=== PATIENT | female | born 1980 | race Caucasian/White ===

== ENCOUNTER 2020-05-22 18:29 | Inpatient (IN) | payer OTHER ==
[~2020-05-22] VITALS: Ht 157.5 cm; Wt 74.6 kg
[2020-05-22] MEDS ORDERED: ONDANSETRON HCL 4 MG/2 ML VIAL IVP PRN (19:15)
[2020-05-22] MEDS ORDERED: 0.9% SODIUM CHLORIDE 10 ML SYRINGE IVP PRN ×2 (19:15→22:15)
[2020-05-22] MEDS ORDERED: ACETAMINOPHEN 325 MG TABLET PO PRN (19:15)
[2020-05-22 19:23] LABS: BASOPHILS % (AUTO) 0.6 % (0.0-2.0); EOSINOPHILS % (AUTO) 1.3 % (1.0-6.0); HEMATOCRIT 34.2 % (36-46); HEMOGLOBIN 11.2 g/dL (12.0-16.0); LYMPHOCYTES # (AUTO) 1.7 K/uL (1.0-4.8); LYMPHOCYTES % (AUTO) 16.7 % (22.0-44.0); MEAN CORPUSCULAR HEMOGLOBIN 29.4 pg (26.0-34.0); MEAN CORPUSCULAR HGB CONC 32.7 G/dL (31.0-37.0); MEAN CORPUSCULAR VOLUME 90 fL (80-100); MONOCYTES # (AUTO) 0.9 K/uL (0.1-1.0); MONOCYTES % (AUTO) 8.9 % (2.0-9.0); NEUTROPHILS # (AUTO) 7.2 K/uL (1.8-7.7); NEUTROPHILS % (AUTO) 72.5 % (40.0-70.0); PLATELET COUNT (AUTO) 354 K/uL (150-450); RED CELL DISTRIBUTION WIDTH 14.1 % (11.5-14.5)
[2020-05-22 19:30] LABS: CARBON DIOXIDE 32 mmol/L (22-29); CHLORIDE 102 mmol/L (98-107); POTASSIUM 4.8 mmol/L (3.5-5.1); SODIUM SERUM 140 mmol/L (136-145)
[2020-05-22 19:31] LABS: ANION GAP 6 mmol/L (8-16); CALCIUM, TOTAL 9.5 mg/dL (8.8-10.5); CREATININE 0.86 mg/dL (0.60-1.30); GLOMERULAR FILTR. RATE CALC > 60 mL/min (>60); GLUCOSE,RANDOM 139 mg/dL (70-110); UREA NITROGEN, BLOOD 27 mg/dL (7-18)
[2020-05-22 21:50] VITALS: BP 130/89
[2020-05-22] MEDS ORDERED: KETOROLAC TROMETHAMINE 15 MG/ML VIAL IVP PRN (22:15)
[2020-05-22] MEDS ORDERED: ASPI-1111 PO (22:22)
[2020-05-22] MEDS ORDERED: CYCL10 PO (22:22)
[2020-05-22] MEDS ORDERED: IBUP-2124 PO (22:25)
[2020-05-22] MEDS ORDERED: LIDO700A15 TP (22:25)
[2020-05-22] MEDS ORDERED: NALO4SPR NASAL (22:25)
[2020-05-22] MEDS ORDERED: SENN8.6T20 PO (22:25)
[2020-05-22] MEDS ORDERED: tylenol PO (22:26)
[2020-05-22] MEDS ORDERED: LISI2.5T91 PO (22:26)
[2020-05-22 23:59] VITALS: BP 138/81
[2020-05-23] MEDS: HEPARIN SODIUM,PORCINE 5,000 UNITS/ML VIAL SQ SCH ×5 (00:17→23:24)
[2020-05-23 04:26] VITALS: BP 141/84
[2020-05-23] MEDS ORDERED: SODIUM CHLORIDE 0.9% 2,250 ML IV ONE (06:30)
[2020-05-23] MEDS ORDERED: VANCOMYCIN HCL 1.5 GM in DEXTROSE 5%-WATER 250 ML IV SCH (06:30)
[2020-05-23] MEDS ORDERED: VANCOMYCIN HCL 1.5 GM in DEXTROSE 5%-WATER 250 ML IV ONE (08:00)
[2020-05-23] MEDS: LEVOFLOXACIN 500 MG/D5% WATER 100 ML IV SCH (08:47)
[2020-05-23] MEDS: ASPIRIN 81 MG EC TABLET PO SCH (08:48)
[2020-05-23] MEDS: FAMOTIDINE 10 MG/ML 2 ML VIAL IVP SCH ×2 (08:48→20:36)
[2020-05-23] MEDS: LIDOCAINE 5% TRANSDERMAL PATCH TD SCH (08:48)
[2020-05-23] MEDS: SENNA 187 MG TABLET PO SCH (08:48)
[2020-05-23] MEDS: LISINOPRIL 5 MG TABLET PO SCH (08:48)
[2020-05-23 12:42] LABS: ALANINE AMINOTRANSFERASE 107 U/L (12-78); ALBUMIN 2.8 g/dL (3.4-5.0); ALKALINE PHOSPHATASE 74 U/L (46-116); ASPARTATE AMINOTRANSFERASE 64 U/L (15-37); BILIRUBIN,TOTAL 0.7 mg/dL (0.1-1.0); CALCIUM, TOTAL 8.8 mg/dL (8.8-10.5); CARBON DIOXIDE 29 mmol/L (22-29); CREATININE 0.66 mg/dL (0.60-1.30); GLOMERULAR FILTR. RATE CALC > 60 mL/min (>60); GLUCOSE,RANDOM 98 mg/dL (70-110); LIPASE 104 U/L (73-393); TOTAL PROTEIN, SERUM 7.5 g/dL (6.4-8.2); UREA NITROGEN, BLOOD 23 mg/dL (7-18)
[2020-05-23 12:46] LABS: ANION GAP 6 mmol/L (8-16); CHLORIDE 101 mmol/L (98-107); POTASSIUM 4.5 mmol/L (3.5-5.1); SODIUM SERUM 136 mmol/L (136-145)
[2020-05-23] MEDS ORDERED: MEBROFENIN TC99M/MCL ISOTOPE 1 EA INJ INJ ONE (14:40)
[2020-05-23] MEDS: VANCOMYCIN HCL 1 GM/D5% WATER 200 ML IV SCH ×2 (17:46→23:24)
[2020-05-23 20:05] VITALS: BP 125/76
[2020-05-23] MEDS: -LIDODERM PATCH NOTE- MISC SCH (20:37)
[2020-05-23 23:08] VITALS: BP 136/81
[2020-05-24 03:36] VITALS: BP 139/79
[2020-05-24] MEDS: LEVOFLOXACIN 500 MG/D5% WATER 100 ML IV SCH (06:08)
[2020-05-24 07:04] LABS: ANION GAP 5 mmol/L (8-16); CALCIUM, TOTAL 8.4 mg/dL (8.8-10.5); CARBON DIOXIDE 28 mmol/L (22-29); CHLORIDE 101 mmol/L (98-107); CREATININE 0.76 mg/dL (0.60-1.30); GLOMERULAR FILTR. RATE CALC > 60 mL/min (>60); GLUCOSE,RANDOM 99 mg/dL (70-110); POTASSIUM 4.3 mmol/L (3.5-5.1); SODIUM SERUM 134 mmol/L (136-145); UREA NITROGEN, BLOOD 19 mg/dL (7-18); VANCOMYCIN,RANDOM 17.4 mcg/mL (25.0-50.0)
[2020-05-24 08:09] VITALS: BP 126/82
[2020-05-24] MEDS: VANCOMYCIN HCL 1 GM/D5% WATER 200 ML IV SCH ×2 (08:42→17:29)
[2020-05-24] MEDS: FAMOTIDINE 10 MG/ML 2 ML VIAL IVP SCH ×2 (08:42→20:55)
[2020-05-24] MEDS: ASPIRIN 81 MG EC TABLET PO SCH (08:43)
[2020-05-24] MEDS: SENNA 187 MG TABLET PO SCH (08:43)
[2020-05-24] MEDS: LISINOPRIL 5 MG TABLET PO SCH (08:44)
[2020-05-24] MEDS: LIDOCAINE 5% TRANSDERMAL PATCH TD SCH (09:00)
[2020-05-24] MEDS ORDERED: BUPIVACAINE 0.25%/EPI 1:200,000/PF 10 ML VIAL ONE (13:51)
[2020-05-24] MEDS ORDERED: RINGERS SOLUTION,LACTATED 1,000 ML IV ONE ×3 (14:20→15:47)
[2020-05-24] MEDS ORDERED: SODIUM CHLORIDE 0.9% 1,000 ML ONE (15:16)
[2020-05-24] MEDS ORDERED: HYDROmorphone 2 MG/ML SYRINGE IVP PRN (15:45)
[2020-05-24] MEDS ORDERED: MEPERIDINE-PF 25 MG/ML VIAL IVP PRN (15:45)
[2020-05-24] MEDS ORDERED: FentaNYL CITRATE-PF 100 MCG/2 ML VIAL IVP PRN (15:45)
[2020-05-24] MEDS ORDERED: SUGAMMADEX SODIUM 200 MG/2 ML VIAL IVP ONE (15:47)
[2020-05-24] MEDS: ONDANSETRON HCL 4 MG/2 ML VIAL IVP PRN (18:14)
[2020-05-24] MEDS: ACETAMINOPHEN 325 MG TABLET PO PRN (18:16)
[2020-05-24 19:55] VITALS: BP 161/94
[2020-05-24] MEDS: OXYGEN THERAPY IH SCH (20:00)
[2020-05-24] MEDS: -LIDODERM PATCH NOTE- MISC SCH (21:00)
[2020-05-24 23:01] VITALS: BP 155/98
[2020-05-25] MEDS: VANCOMYCIN HCL 1 GM/D5% WATER 200 ML IV SCH ×4 (00:41→23:20)
[2020-05-25] MEDS: ACETAMINOPHEN 325 MG TABLET PO PRN ×2 (00:45→05:34)
[2020-05-25 05:05] VITALS: BP 163/95
[2020-05-25] MEDS: ONDANSETRON HCL 4 MG/2 ML VIAL IVP PRN (05:34)
[2020-05-25] MEDS ORDERED: MORPHINE SULFATE 4 MG/ML SYRINGE IVP ONE (05:41)
[2020-05-25] MEDS ORDERED: DEXAMETHASONE SOD PHOS 4 MG/ML VIAL IVP ONE (05:41)
[2020-05-25] MEDS ORDERED: FentaNYL CITRATE-PF 100 MCG/2 ML VIAL IVP ONE (05:41)
[2020-05-25] MEDS ORDERED: SUCCINYLCHOLINE CHLORIDE 20 MG/ML 10 ML VIAL IVP ONE (05:41)
[2020-05-25] MEDS ORDERED: ROCURONIUM BROMIDE 10 MG/ML 5 ML VIAL IVP ONE (05:41)
[2020-05-25] MEDS ORDERED: PROPOFOL 1% 20 ML VIAL IVP ONE (05:41)
[2020-05-25] MEDS ORDERED: LIDOCAINE/PF 2% 5 ML VIAL IM ONE (05:41)
[2020-05-25] MEDS ORDERED: MIDAZOLAM HCL 2 MG/2 ML VIAL IVP ONE (05:41)
[2020-05-25] MEDS ORDERED: ONDANSETRON HCL 4 MG/2 ML VIAL IVP ONE (05:41)
[2020-05-25 06:27] LABS: BASOPHILS % (AUTO) 0.2 % (0.0-2.0); EOSINOPHILS % (AUTO) 0.3 % (1.0-6.0); HEMATOCRIT 28.9 % (36-46); HEMOGLOBIN 9.8 g/dL (12.0-16.0); LYMPHOCYTES # (AUTO) 1.9 K/uL (1.0-4.8); LYMPHOCYTES % (AUTO) 16.9 % (22.0-44.0); MEAN CORPUSCULAR HEMOGLOBIN 30.4 pg (26.0-34.0); MEAN CORPUSCULAR HGB CONC 33.9 G/dL (31.0-37.0); MEAN CORPUSCULAR VOLUME 90 fL (80-100); MONOCYTES # (AUTO) 0.8 K/uL (0.1-1.0); MONOCYTES % (AUTO) 7.1 % (2.0-9.0); NEUTROPHILS # (AUTO) 8.5 K/uL (1.8-7.7); NEUTROPHILS % (AUTO) 75.5 % (40.0-70.0); PLATELET COUNT (AUTO) 407 K/uL (150-450); RED BLOOD CELL COUNT(AUTO) 3.23 MIL/uL (4.00-5.20); RED CELL DISTRIBUTION WIDTH 14.5 % (11.5-14.5)
[2020-05-25] MEDS: LEVOFLOXACIN 500 MG/D5% WATER 100 ML IV SCH (06:34)
[2020-05-25 06:48] LABS: ANION GAP 3 mmol/L (8-16); CALCIUM, TOTAL 8.4 mg/dL (8.8-10.5); CARBON DIOXIDE 29 mmol/L (22-29); CHLORIDE 102 mmol/L (98-107); CREATININE 0.68 mg/dL (0.60-1.30); GLOMERULAR FILTR. RATE CALC > 60 mL/min (>60); GLUCOSE,RANDOM 92 mg/dL (70-110); POTASSIUM 3.9 mmol/L (3.5-5.1); SODIUM SERUM 134 mmol/L (136-145); UREA NITROGEN, BLOOD 14 mg/dL (7-18)
[2020-05-25] MEDS: OXYGEN THERAPY IH SCH ×2 (08:00→20:30)
[2020-05-25 08:51] VITALS: BP 143/96
[2020-05-25] MEDS: FAMOTIDINE 10 MG/ML 2 ML VIAL IVP SCH ×2 (09:14→20:28)
[2020-05-25] MEDS: ASPIRIN 81 MG EC TABLET PO SCH (09:15)
[2020-05-25] MEDS: LISINOPRIL 5 MG TABLET PO SCH (09:15)
[2020-05-25] MEDS: LIDOCAINE 5% TRANSDERMAL PATCH TD SCH (09:17)
[2020-05-25] MEDS: SENNA 187 MG TABLET PO SCH (09:22)
[2020-05-25 15:52] VITALS: BP 137/81
[2020-05-25 20:00] VITALS: BP 145/84
[2020-05-25] MEDS: -LIDODERM PATCH NOTE- MISC SCH (20:35)
[2020-05-26 06:03] LABS: BASOPHILS % (AUTO) 0.5 % (0.0-2.0); EOSINOPHILS % (AUTO) 1.2 % (1.0-6.0); HEMATOCRIT 30.4 % (36-46); HEMOGLOBIN 10.5 g/dL (12.0-16.0); LYMPHOCYTES # (AUTO) 2.2 K/uL (1.0-4.8); LYMPHOCYTES % (AUTO) 22.7 % (22.0-44.0); MEAN CORPUSCULAR HEMOGLOBIN 31.3 pg (26.0-34.0); MEAN CORPUSCULAR HGB CONC 34.6 G/dL (31.0-37.0); MEAN CORPUSCULAR VOLUME 91 fL (80-100); MONOCYTES # (AUTO) 0.7 K/uL (0.1-1.0); MONOCYTES % (AUTO) 7.5 % (2.0-9.0); NEUTROPHILS # (AUTO) 6.7 K/uL (1.8-7.7); NEUTROPHILS % (AUTO) 68.1 % (40.0-70.0); PLATELET COUNT (AUTO) 465 K/uL (150-450); RED BLOOD CELL COUNT(AUTO) 3.36 MIL/uL (4.00-5.20); RED CELL DISTRIBUTION WIDTH 15.1 % (11.5-14.5)
[2020-05-26 06:35] LABS: ANION GAP 5 mmol/L (8-16); CALCIUM, TOTAL 8.7 mg/dL (8.8-10.5); CARBON DIOXIDE 29 mmol/L (22-29); CHLORIDE 104 mmol/L (98-107); GLOMERULAR FILTR. RATE CALC > 60 mL/min (>60); GLUCOSE,RANDOM 100 mg/dL (70-110); POTASSIUM 4.3 mmol/L (3.5-5.1); SODIUM SERUM 138 mmol/L (136-145); UREA NITROGEN, BLOOD 14 mg/dL (7-18)
[2020-05-26] MEDS: LEVOFLOXACIN 500 MG/D5% WATER 100 ML IV SCH (06:36)
[2020-05-26 06:44] VITALS: BP 135/88
[2020-05-26 08:16] VITALS: BP 128/82
[2020-05-26] MEDS: LIDOCAINE 5% TRANSDERMAL PATCH TD SCH (09:17)
[2020-05-26] MEDS: FAMOTIDINE 10 MG/ML 2 ML VIAL IVP SCH ×2 (09:18→20:45)
[2020-05-26] MEDS: VANCOMYCIN HCL 1 GM/D5% WATER 200 ML IV SCH ×2 (09:18→16:28)
[2020-05-26] MEDS: LISINOPRIL 5 MG TABLET PO SCH (09:18)
[2020-05-26] MEDS: SENNA 187 MG TABLET PO SCH (09:18)
[2020-05-26] MEDS: ASPIRIN 81 MG EC TABLET PO SCH (09:18)
[2020-05-26 15:20] VITALS: BP 120/80
[2020-05-26 20:53] VITALS: BP 103/60
[2020-05-26] MEDS: OXYGEN THERAPY IH SCH (21:06)
[2020-05-26] MEDS: -LIDODERM PATCH NOTE- MISC SCH (21:07)
[2020-05-27] MEDS: VANCOMYCIN HCL 1 GM/D5% WATER 200 ML IV SCH ×3 (00:38→15:45)
[2020-05-27] MEDS: OXYGEN THERAPY IH SCH ×3 (00:39→20:00)
[2020-05-27 05:12] VITALS: BP 127/88
[2020-05-27] MEDS: LEVOFLOXACIN 500 MG/D5% WATER 100 ML IV SCH (06:59)
[2020-05-27 07:03] LABS: ANION GAP 4 mmol/L (8-16); CALCIUM, TOTAL 8.8 mg/dL (8.8-10.5); CARBON DIOXIDE 30 mmol/L (22-29); CHLORIDE 99 mmol/L (98-107); CREATININE 0.75 mg/dL (0.60-1.30); GLOMERULAR FILTR. RATE CALC > 60 mL/min (>60); GLUCOSE,RANDOM 97 mg/dL (70-110); POTASSIUM 4.1 mmol/L (3.5-5.1); SODIUM SERUM 133 mmol/L (136-145); UREA NITROGEN, BLOOD 19 mg/dL (7-18)
[2020-05-27 08:02] VITALS: BP 126/82
[2020-05-27] MEDS: SENNA 187 MG TABLET PO SCH (08:04)
[2020-05-27] MEDS: FAMOTIDINE 10 MG/ML 2 ML VIAL IVP SCH ×2 (08:04→22:53)
[2020-05-27] MEDS: LISINOPRIL 5 MG TABLET PO SCH (08:04)
[2020-05-27] MEDS: ASPIRIN 81 MG EC TABLET PO SCH (08:04)
[2020-05-27] MEDS: LIDOCAINE 5% TRANSDERMAL PATCH TD SCH (08:05)
[2020-05-27 15:49] VITALS: BP 114/73
[2020-05-27 20:00] VITALS: BP 113/71
[2020-05-27] MEDS: -LIDODERM PATCH NOTE- MISC SCH (21:00)
[2020-05-28] MEDS: VANCOMYCIN HCL 1 GM/D5% WATER 200 ML IV SCH ×5 (00:51→22:46)
[2020-05-28 05:43] VITALS: BP 127/77
[2020-05-28] MEDS: LEVOFLOXACIN 500 MG/D5% WATER 100 ML IV SCH (06:13)
[2020-05-28 07:27] LABS: ANION GAP 5 mmol/L (8-16); CALCIUM, TOTAL 8.7 mg/dL (8.8-10.5); CARBON DIOXIDE 29 mmol/L (22-29); CHLORIDE 99 mmol/L (98-107); GLOMERULAR FILTR. RATE CALC > 60 mL/min (>60); GLUCOSE,RANDOM 102 mg/dL (70-110); POTASSIUM 4.1 mmol/L (3.5-5.1); SODIUM SERUM 133 mmol/L (136-145); UREA NITROGEN, BLOOD 19 mg/dL (7-18)
[2020-05-28] MEDS: OXYGEN THERAPY IH SCH ×2 (08:00→20:00)
[2020-05-28 08:08] VITALS: BP 110/65
[2020-05-28] MEDS: FAMOTIDINE 10 MG/ML 2 ML VIAL IVP SCH ×2 (08:24→22:39)
[2020-05-28] MEDS: SENNA 187 MG TABLET PO SCH (08:24)
[2020-05-28] MEDS: ASPIRIN 81 MG EC TABLET PO SCH (08:24)
[2020-05-28] MEDS: LISINOPRIL 5 MG TABLET PO SCH (08:24)
[2020-05-28] MEDS: LIDOCAINE 5% TRANSDERMAL PATCH TD SCH (08:24)
[2020-05-28 16:02] VITALS: BP 117/71
[2020-05-28 20:00] VITALS: BP 136/79
[2020-05-28] MEDS: -LIDODERM PATCH NOTE- MISC SCH (21:00)
[2020-05-29 04:39] VITALS: BP 115/81
[2020-05-29] MEDS: LEVOFLOXACIN 500 MG/D5% WATER 100 ML IV SCH (06:03)
[2020-05-29 07:16] LABS: ANION GAP 3 mmol/L (8-16); CALCIUM, TOTAL 8.6 mg/dL (8.8-10.5); CARBON DIOXIDE 30 mmol/L (22-29); CHLORIDE 100 mmol/L (98-107); CREATININE 0.82 mg/dL (0.60-1.30); GLOMERULAR FILTR. RATE CALC > 60 mL/min (>60); GLUCOSE,RANDOM 103 mg/dL (70-110); POTASSIUM 4.3 mmol/L (3.5-5.1); SODIUM SERUM 133 mmol/L (136-145); UREA NITROGEN, BLOOD 19 mg/dL (7-18)
[2020-05-29] MEDS: OXYGEN THERAPY IH SCH ×2 (08:00→20:00)
[2020-05-29 08:17] VITALS: BP 121/77
[2020-05-29] MEDS: VANCOMYCIN HCL 1 GM/D5% WATER 200 ML IV SCH ×3 (08:30→23:37)
[2020-05-29] MEDS: LIDOCAINE 5% TRANSDERMAL PATCH TD SCH (08:31)
[2020-05-29] MEDS: SENNA 187 MG TABLET PO SCH (08:31)
[2020-05-29] MEDS: LISINOPRIL 5 MG TABLET PO SCH (08:31)
[2020-05-29] MEDS: ASPIRIN 81 MG EC TABLET PO SCH (08:31)
[2020-05-29] MEDS: FAMOTIDINE 10 MG/ML 2 ML VIAL IVP SCH ×2 (08:31→20:11)
[2020-05-29] MEDS ORDERED: LEVO500P13 IV (13:08)
[2020-05-29 16:16] VITALS: BP 114/69
[2020-05-29] MEDS: -LIDODERM PATCH NOTE- MISC SCH (21:00)
[2020-05-30 05:26] LABS: ANION GAP 3 mmol/L (8-16); CALCIUM, TOTAL 8.7 mg/dL (8.8-10.5); CARBON DIOXIDE 29 mmol/L (22-29); CHLORIDE 101 mmol/L (98-107); CREATININE 0.88 mg/dL (0.60-1.30); GLOMERULAR FILTR. RATE CALC > 60 mL/min (>60); GLUCOSE,RANDOM 97 mg/dL (70-110); POTASSIUM 4.2 mmol/L (3.5-5.1); SODIUM SERUM 133 mmol/L (136-145); UREA NITROGEN, BLOOD 17 mg/dL (7-18); VANCOMYCIN,RANDOM 19.2 mcg/mL (25.0-50.0)
[2020-05-30] MEDS: LEVOFLOXACIN 500 MG/D5% WATER 100 ML IV SCH (06:03)
[2020-05-30] MEDS: VANCOMYCIN HCL 1 GM/D5% WATER 200 ML IV SCH (07:48)
[2020-05-30] MEDS: OXYGEN THERAPY IH SCH (08:00)
[2020-05-30] MEDS: SENNA 187 MG TABLET PO SCH (08:13)
[2020-05-30] MEDS: LISINOPRIL 5 MG TABLET PO SCH (08:13)
[2020-05-30] MEDS: ASPIRIN 81 MG EC TABLET PO SCH (08:14)
[2020-05-30 08:17] VITALS: BP 118/74
[2020-05-30] MEDS: LIDOCAINE 5% TRANSDERMAL PATCH TD SCH (08:32)
[2020-05-30] MEDS: FAMOTIDINE 10 MG/ML 2 ML VIAL IVP SCH (08:32)
== END 2020-05-30 13:15 | DRG 417 ==
LOC: EMS 18:32 → 6S 19:04 → 6N 05-23 07:00 → 6S 05-28 12:31
PROVIDERS: ADMIT Internal Medicine; ATTEND Internal Medicine
PROC: 0FT44ZZ Resection of Gallbladder, Percutaneous Endoscopic Approach (ICD-10-PCS; principal; 2020-05-24 17:30)
DX: K80.00 Calculus of gallbladder with acute cholecystitis without obstruction (principal); J18.9 Pneumonia, unspecified organism; K66.1 Hemoperitoneum; E66.9 Obesity, unspecified; I10 Essential (primary) hypertension; Z20.828 Contact with and (suspected) exposure to other viral communicable diseases; Z68.30 Body mass index [BMI] 30.0-30.9, adult; Z88.0 Allergy status to penicillin
CPT/HCPCS: 71275; 76705; 78226; 83605; 85379; 87040; 88304; 97110; 97116; 97530; A9537; J0330; J1100; J1644; J1885; J1956; J2250; J2270; J2405; J2704; J3010; J3370; J3490; J7030; J7060; J7120